=== PATIENT | female | born 1945 | race Caucasian/White ===

== ENCOUNTER 2016-07-18 06:21 | Day surgery (SDC) | payer OTHER ==
[~2016-07-18] VITALS: Ht 172.7 cm; Wt 94.8 kg
--- NOTE | ~2016-07-18 | O ---
[facility] [place] [address] OPERATIVE REPORT Name: NINGHARITHA MOHAN Room #: DEP [facility]..#: [id number] Admission: 07/18/16 Attend Phys: Mark Castro MD Discharge: 07/18/16 Date of : 43 Report #: [id number] THIS REPORT FOR: //name// CC: Elian Mckinley MD FAM unknown Haile Nehemiasshaquille Castro DATE OF SERVICE: 07/18/2016 FARE COLLECTOR: None. PREOPERATIVE DIAGNOSIS: Unilateral left upper lid ptosis. POSTOPERATIVE DIAGNOSIS: Unilateral left upper lid ptosis. OPERATION PERFORMED: Unilateral left upper lid ptosis repair. ANESTHESIA: Local anesthesia with IV sedation. COMPLICATIONS: None. INDICATIONS FOR SURGERY: This patient has left upper lid ptosis with superior visual field loss. Visual field testing demonstrates dense superior visual defects. Retesting with the upper lid elevated shows an improvement in visual field loss of over 30% and in excess of 12 degrees. The current procedure is undertaken in order to improve the patient's visual function. Informed consent was obtained to include but not limited to the potential risks for bleeding, scarring, infection, loss of vision, failure to improve the problem, need for further surgery and need for adjustment of lid height. DESCRIPTION OF PROCEDURE: The patient was taken to the operating room, where a left upper lid crease was drawn with a skin marking pen. The incision was then made with Alessio scissors and dissected down to the orbital septum. Hemostasis was achieved with a monopolar cautery as it was throughout the case. The orbital septum was then entered and the preaponeurotic fat identified. The levator aponeurosis was then disinserted from the anterior surface of the tarsal plate and dissected free in the avascular Hernandez's muscle plane. The aponeurosis was then advanced onto the anterior surface of the tarsal plate and reattached with mattress double-arm 6-0 Novafil sutures, adjusting for height and contour. The redundant aponeurosis was then amputated. The upper lid crease was then reformed with interrupted 6-0 chromic sutures. The skin was closed with interrupted 6-0 plain gut suture. The wound was then cleaned and dressed with ophthalmic antibiotic ointment. [address] [address] OPERATIVE REPORT Name: HARITHA BARCLAY Room #: DEP [facility].#: [id number] Admission: 07/18/16 Attend Phys: Mark Castro MD Discharge: 07/18/16 Date of : 43 Report #: [id number] The patient was then transported to the recovery area, having tolerated the procedure well with no anesthesia or operative complications being noted. By: [id number] Mark Castro MD /nt
--- NOTE | ~2016-07-18 | O ---
[facility] [place] [address] OPERATIVE REPORT Name: HARITHA BARCLAY Room #: DEP [facility].#: [id number] Admission: 07/18/16 Attend Phys: Mark Castro MD Discharge: 07/18/16 Date of : 43 Report #: [id number] THIS REPORT FOR: //name// CC: FAM jennifer Castro BUNG SEWER: None. PREOPERATIVE DIAGNOSIS: Unilateral right upper lid ptosis. POSTOPERATIVE DIAGNOSIS: Unilateral right upper lid ptosis. OPERATION PERFORMED: Unilateral right upper lid ptosis repair. ANESTHESIA: Local anesthesia with IV sedation. COMPLICATIONS: None. INDICATIONS FOR SURGERY: This patient has right upper lid ptosis with superior visual field loss in excess of 30%. Visual field testing shows an improvement in the superior visual field loss with elevation of the eyelid margin into a normal anatomic location. The current procedure is undertaken in order to improve the patient's visual function. Informed consent was obtained to include but not limited to the potential risks for bleeding, scarring, infection, loss of vision, failure to improve the problem, need for further surgery and need for adjustment of lid height. DESCRIPTION OF PROCEDURE: The patient was taken to the operating room, where a right upper lid crease was drawn with a skin marking pen. The incision was then made with Alessio scissors and dissected down to the orbital septum. Hemostasis was achieved with a monopolar cautery as it was throughout the case. The orbital septum was then entered and the preaponeurotic fat identified. The levator aponeurosis was then disinserted from the anterior surface of the tarsal plate and dissected free in the avascular Hernandez's muscle plane. The aponeurosis was then advanced onto the anterior surface of the tarsal plate and reattached with mattress double-arm 6-0 Novafil sutures, adjusting for height and contour. The redundant aponeurosis was then amputated. The upper lid crease was then reformed with interrupted 6-0 Chromic sutures. The skin was closed with interrupted 6-0 plain gut suture. The wound was then cleaned and dressed with ophthalmic antibiotic ointment. [facility] [address] [place] [address] OPERATIVE REPORT Name: HARITHA BARCLAY Room #: DEP [facility].#: [id number] Admission: 07/18/16 Attend Phys: Mark Castro MD Discharge: 07/18/16 Date of : 43 Report #: [id number] The patient was then transported to the recovery area, having tolerated the procedure well with no anesthesia or operative complications being noted. By: [id number] Mark Castro MD /nt
[~2016-07-18 06:21] MED LIST: APAP500 PO; ASPIRIN325 PO; ATORVASTATIN PO; CELEXA20 MG PO; FENOFIBRATE PO; FISH OIL 1,001000 M2 PO; JANUVIA25 MG PO; KLOR-CON 1010 MEQ PO; LASIX 20 MG TAB20 MG PO; LEVOTHYROXIN0.075 MG PO; LIPITOR40 MG PO; NOVOLOG100 UNIT/1 SUBQ; PANTOPRAZOLE SO40 M1 PO; PLAVIX 75 MG TA75 M1 PO; REQUIP 0.25 M0.25 M1 PO; TRAZODONE HCL100 MG PO; TYLENOL325 MG PO
[2016-07-18 11:45] VITALS: BP 140/60
== END 2016-07-18 14:28 | disposition home or self-care (01) ==
LOC: TBA 06:21 → OR 06:21
DX: H02.403 Unspecified ptosis of bilateral eyelids (principal); H53.462 Homonymous bilateral field defects, left side; H53.461 Homonymous bilateral field defects, right side; E11.9 Type 2 diabetes mellitus without complications; I10 Essential (primary) hypertension; E78.00 Pure hypercholesterolemia, unspecified; E03.9 Hypothyroidism, unspecified; J45.909 Unspecified asthma, uncomplicated; Z90.710 Acquired absence of both cervix and uterus; Z98.42 Cataract extraction status, left eye; Z98.41 Cataract extraction status, right eye; Z96.1 Presence of intraocular lens
CPT/HCPCS: 50010; 50101; 50386; 50398; 51606; 51636; 56528; 56531; 62110; 62850; 70005